=== PATIENT | female | born 1990 | race Caucasian/White ===

== ENCOUNTER 2018-09-23 15:02 | Emergency (ER) | payer BC ==
[~2018-09-23] VITALS: Ht 162.6 cm; Wt 54.9 kg
[2018-09-23 15:46] VITALS: Ht 162.6 cm; Wt 54.9 kg
[2018-09-23 18:40] VITALS: BP 106/62
== END 2018-09-23 18:40 | disposition home or self-care (01) ==
LOC: ED 15:02
DX: G43.909 Migraine, unspecified, not intractable, without status migrainosus (principal)
CPT/HCPCS: J0780